=== PATIENT | female | born 1960 | race Caucasian/White ===

== ENCOUNTER 2017-10-05 06:07 | Day surgery (SDC) | payer OTHER ==
[2017-10-02 16:22] VITALS: BMI 22.7
--- NOTE | 2017-10-05 07:19 | HP ---
Admitting History and Physical - Admission History of Present Illness: Patient is a 56 y/o female with a past medical history of depression. She reports struggling with depression since 2009. Patient does report one suicide attempt with hospitalization in 2010 after the (suicide) of her son. Patient presents for ECT, she reports receiving ect in 2013 (10-12 treatments) and 2014 (6 treatments). She reports significant relief of depressive symptoms after starting ect. However, she self- discontinued after feeling better. Patient reports the depressive thoughts have worsened within the past months. Patient does reports suicidal ideation but she denies a plan. Patient denies any homicidal ideation, visual or auditory hallucination. 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 History of Recent Travel: No Home Medications - Allergies Allergies/Adverse Reactions: Allergies Allergy/AdvReac Type Severity Reaction Status Date / Time sertraline [From Zoloft] Allergy Severe MIGRAINE Verified 10/02/17 16:03 HEADACHE soy Allergy Intermediate Rash Verified 10/02/17 16:03 - Home Medications Home Medications: Ambulatory Orders Alprazolam [Xanax] 2 mg PO DAILY 10/02/17 Ibuprofen 600 mg PO TID PRN 10/02/17 Venlafaxine HCl ER [Effexor Xr -] 75 mg PO DAILY 10/02/17 Family Disease History - Family Disease History Family Disease History: CA: Father (lung ca), Mother (breast ca ), Other: Sister (depression, suicide ) Review of Systems - Review of Systems Constitutional: reports: No Symptoms Eyes: reports: No Symptoms HENT: reports: No Symptoms Neck: reports: No Symptoms Cardiovascular: reports: No Symptoms Respiratory: reports: No Symptoms Gastrointestinal: reports: No Symptoms Genitourinary: reports: No Symptoms Musculoskeletal: reports: No Symptoms Integumentary: reports: No Symptoms Neurological: reports: No Symptoms Endocrine: reports: No Symptoms Hematology/Lymphatic: reports: No Symptoms Psychiatric: reports: Depression Physical Examination Constitutional: Yes: Well Nourished, No Distress, Calm Eyes: Yes: WNL, Conjunctiva Clear, EOM Intact HENT: Yes: WNL, Atraumatic, Normocephalic Neck: Yes: WNL, Supple, Trachea Midline Cardiovascular: Yes: WNL, Regular Rate and Rhythm, S1, S2 Respiratory: Yes: WNL, Regular, CTA Bilaterally Gastrointestinal: Yes: WNL, Normal Bowel Sounds, Soft ...Rectal Exam: Yes: Deferred Renal/: Yes: WNL Musculoskeletal: Yes: WNL Extremities: Yes: WNL Edema: No Peripheral Pulses WNL: Yes Peripheral Pulses: Left Radial: 4+, Right Radial: 4+, Left Doralis Pedis: 3+, Right Dorsalis Pedis: 3+, Left Femoral: 3+, Right Femoral: 3+ Integumentary: Yes: WNL Neurological: Yes: WNL, Alert, Oriented ...Motor Strength: WNL Psychiatric: Yes: WNL, Alert, Oriented Labs: CBC WBC 7.1 K/mm3 (4.0-10.8) 10/05/17 07:10 RBC 4.20 M/mm3 (3.60-5.2) 10/05/17 07:10 Hgb 13.5 GM/dl (10.7-15.3) 10/05/17 07:10 Hct 39.6 % (32.4-45.2) 10/05/17 07:10 MCV 94.2 fl (80-96) 10/05/17 07:10 MCH 32.2 pg (25.7-33.7) 10/05/17 07:10 MCHC 34.2 g/dl (32.0-36.0) 10/05/17 07:10 RDW 13.2 % (11.6-15.6) 10/05/17 07:10 Plt Count 325 K/MM3 (134-434) 10/05/17 07:10 MPV 7.9 fl (7.5-11.1) 10/05/17 07:10 CMP Sodium 134 mmol/L (136-145) L 10/05/17 07:10 Potassium 3.9 mmol/L (3.5-5.1) 10/05/17 07:10 Chloride 105 mmol/L (98-107) 10/05/17 07:10 Carbon Dioxide 24 mmol/L (22-28) 10/05/17 07:10 Anion Gap 5 (8-16) L 10/05/17 07:10 BUN 16 mg/dl (7-18) 10/05/17 07:10 Creatinine < 0.8 mg/dl (0.6-1.3) 10/05/17 07:10 Creat Clearance w eGFR > 60 (>60) 10/05/17 07:10 Random Glucose 90 mg/dl (74-106) 10/05/17 07:10 Calcium 8.8 mg/dl (8.4-10.2) 10/05/17 07:10 Total Bilirubin < 0.5 mg/dl (0.2-1.0) 10/05/17 07:10 AST 15 U/L (10-42) 10/05/17 07:10 ALT 11 U/L (10-40) 10/05/17 07:10 Alkaline Phosphatase 61 U/L (32-92) 10/05/17 07:10 Total Protein 6.1 g/dl (6.4-8.3) L 10/05/17 07:10 Albumin 3.6 g/dl (3.5-5.0) 10/05/17 07:10 Assessment/Plan Patient is a 56 y/o female that presents for ect, labs and ekg reviewed patient is medically optimized for procedure informed consent, risks/benefits to be obtained by Dr Reed
[2017-10-05] MEDS ORDERED: ACETAMINOPHEN 325 MG TABLET (FP) PO PRN (07:42)
[2017-10-05] MEDS ORDERED: ONDANSETRON 4 MG/2 ML VIAL IVPUSH PRN (07:42)
[2017-10-05 07:44] LABS: HEMATOCRIT 39.6 % (32.4-45.2); HEMOGLOBIN 13.5 GM/dl (10.7-15.3); MCH 32.2 pg (25.7-33.7); MCHC 34.2 g/dl (32.0-36.0); MEAN CELL VOLUME 94.2 fl (80-96); MEAN PLT VOLUME 7.9 fl (7.5-11.1); PLATELET COUNT 325 K/MM3 (134-434); RDW 13.2 % (11.6-15.6); WHITE BLOOD COUNT 7.1 K/mm3 (4.0-10.8)
[2017-10-05 08:00] LABS: ALBUMIN 3.6 g/dl (3.5-5.0); ALK PHOS 61 U/L (32-92); ANION GAP 5 (8-16); BLOOD UREA NITROGEN 16 mg/dl (7-18); CALCIUM 8.8 mg/dl (8.4-10.2); CHLORIDE 105 mmol/L (98-107); CO2 24 mmol/L (22-28); GLUCOSE,RANDOM 90 mg/dl (74-106); POTASSIUM 3.9 mmol/L (3.5-5.1); SGOT/AST 15 U/L (10-42); SGPT/ALT 11 U/L (10-40); SODIUM 134 mmol/L (136-145); TOT PROT 6.1 g/dl (6.4-8.3)
[2017-10-05 08:07] LABS: INR 0.95 (0.82-1.09); PROTHROMBIN TIME (PATIENT) 10.7 SEC (10.2-13.0)
[2017-10-05 08:08] LABS: BILIRUBIN,TOTAL < 0.5 mg/dl (0.2-1.0); CREATININE < 0.8 mg/dl (0.6-1.3)
[2017-10-05 10:44] VITALS: PULSE 67
[2017-10-05 10:46] VITALS: BP 101/60; TEMP 98.1
--- NOTE | 2017-10-07 13:35 | EKG ---
Test Reason : Blood Pressure : / mmHG Vent. Rate : 068 BPM Atrial Rate : 068 BPM P-R Int : 156 ms QRS Dur : 104 ms QT Int : 424 ms P-R-T Axes : 074 054 052 degrees QTc Int : 450 ms NORMAL SINUS RHYTHM NORMAL ECG NO PREVIOUS ECGS AVAILABLE Confirmed by SABRINA PEREZ, HUGO ([id number]) on 10/07/2017 1:35:21 PM Referred By: Ej Reed Confirmed By:HUGO BENNETT MD
== END 2017-10-05 10:00 | disposition home or self-care (01) ==
LOC: FECT 06:07
PROVIDERS: ATTEND Psychiatry & Neurology Psychiatry
PROC: GZB4ZZZ Other Electroconvulsive Therapy (ICD-10-PCS; principal; 2017-10-05 08:30)
DX: F33.2 Major depressive disorder, recurrent severe without psychotic features (principal); R45.851 Suicidal ideations; Z87.891 Personal history of nicotine dependence; Z91.5 Personal history of self-harm
CPT/HCPCS: 36415; 80053; 85027; 85610; 90870; 93005; 94760

== ENCOUNTER 2017-10-07 05:47 | Day surgery (SDC) | payer OTHER ==
[2017-10-05 11:51] VITALS: BMI 22.7
[2017-10-07 09:15] VITALS: PULSE 76; TEMP 98
[2017-10-07 09:50] VITALS: BP 104/64
== END 2017-10-07 09:30 | disposition home or self-care (01) ==
LOC: FECT 05:47
PROVIDERS: ATTEND Psychiatry & Neurology Psychiatry
PROC: GZB4ZZZ Other Electroconvulsive Therapy (ICD-10-PCS; principal; 2017-10-07 08:30)
DX: F33.2 Major depressive disorder, recurrent severe without psychotic features (principal)
CPT/HCPCS: 90870; 94760

== ENCOUNTER 2017-10-09 05:49 | Day surgery (SDC) | payer OTHER ==
[2017-10-05 12:19] VITALS: BMI 22.7
[2017-10-09 08:16] VITALS: TEMP 97.9
[2017-10-09 10:24] VITALS: BP 100/64; PULSE 62
== END 2017-10-09 10:15 | disposition home or self-care (01) ==
LOC: FECT 05:49
PROVIDERS: ATTEND Psychiatry & Neurology Psychiatry
PROC: GZB4ZZZ Other Electroconvulsive Therapy (ICD-10-PCS; principal; 2017-10-09 08:30)
DX: F33.2 Major depressive disorder, recurrent severe without psychotic features (principal)
CPT/HCPCS: 90870; 94760

== ENCOUNTER 2017-10-12 05:42 | Day surgery (SDC) | payer OTHER ==
[2017-10-05 17:40] VITALS: BMI 22.7
[2017-10-12 09:24] VITALS: TEMP 98.2
[2017-10-12 10:22] VITALS: BP 108/64; PULSE 64
== END 2017-10-12 09:50 | disposition home or self-care (01) ==
LOC: FECT 05:42
PROVIDERS: ATTEND Psychiatry & Neurology Psychiatry
PROC: GZB4ZZZ Other Electroconvulsive Therapy (ICD-10-PCS; principal; 2017-10-12 07:30)
DX: F33.2 Major depressive disorder, recurrent severe without psychotic features (principal)
CPT/HCPCS: 90870; 94760

== ENCOUNTER 2017-10-16 05:43 | Day surgery (SDC) | payer OTHER ==
[2017-10-06 11:39] VITALS: BMI 22.7
[2017-10-16 08:33] VITALS: TEMP 97.6
[2017-10-16] MEDS ORDERED: KETAMINE HCL 500 MG/10 ML VIAL ONE (09:08)
[2017-10-16 10:38] VITALS: BP 110/70; PULSE 63
== END 2017-10-16 10:35 | disposition home or self-care (01) ==
LOC: FECT 05:43
PROVIDERS: ATTEND Psychiatry & Neurology Psychiatry
PROC: GZB4ZZZ Other Electroconvulsive Therapy (ICD-10-PCS; principal; 2017-10-16 07:45)
DX: F33.2 Major depressive disorder, recurrent severe without psychotic features (principal)
CPT/HCPCS: 90870; 94760

== ENCOUNTER 2017-10-21 05:44 | Day surgery (SDC) | payer OTHER ==
[2017-10-16 17:04] VITALS: BMI 22.7
[2017-10-23 07:28] VITALS: BP 102/56; PULSE 64; TEMP 98.2
== END 2017-10-21 09:15 | disposition home or self-care (01) ==
LOC: FECT 05:44
PROVIDERS: ATTEND Psychiatry & Neurology Psychiatry
PROC: GZB4ZZZ Other Electroconvulsive Therapy (ICD-10-PCS; principal; 2017-10-21 07:15)
DX: F33.2 Major depressive disorder, recurrent severe without psychotic features (principal)
CPT/HCPCS: 90870; 94760

== ENCOUNTER 2017-10-23 05:42 | Day surgery (SDC) | payer OTHER ==
[2017-10-21 11:49] VITALS: BMI 22.7
[2017-10-23] MEDS ORDERED: ONDANSETRON 4 MG/2 ML VIAL IVPUSH PRN (07:57)
[2017-10-23] MEDS ORDERED: oxyCODONE HCL 5 MG TABLET PO PRN (07:57)
[2017-10-23 09:42] VITALS: TEMP 98.1
[2017-10-23 09:44] VITALS: BP 106/66; PULSE 66
== END 2017-10-23 09:45 | disposition home or self-care (01) ==
LOC: FECT 05:42
PROVIDERS: ATTEND Psychiatry & Neurology Psychiatry
PROC: GZB4ZZZ Other Electroconvulsive Therapy (ICD-10-PCS; principal; 2017-10-23 07:15)
DX: F33.2 Major depressive disorder, recurrent severe without psychotic features (principal)
CPT/HCPCS: 90870; 94760

== ENCOUNTER 2017-10-26 05:43 | Day surgery (SDC) | payer OTHER ==
[2017-10-21 17:19] VITALS: BMI 22.7
[2017-10-26 10:20] VITALS: PULSE 62; TEMP 98
[2017-10-26 10:21] VITALS: BP 103/57
== END 2017-10-26 09:24 | disposition home or self-care (01) ==
LOC: FECT 05:43
PROVIDERS: ATTEND Psychiatry & Neurology Psychiatry
PROC: GZB4ZZZ Other Electroconvulsive Therapy (ICD-10-PCS; principal; 2017-10-26 07:15)
DX: F33.2 Major depressive disorder, recurrent severe without psychotic features (principal)
CPT/HCPCS: 90870; 94760

== ENCOUNTER → 2017-10-28 | Day surgery (SDC) | payer OTHER ==
[2017-10-28 08:00] VITALS: TEMP 97.7; BMI 22.7
[2017-10-28 09:03] VITALS: BP 93/44; PULSE 67
== END | disposition home or self-care (01) ==
LOC: FECT 05:40
PROVIDERS: ATTEND Psychiatry & Neurology Psychiatry
PROC: GZB4ZZZ Other Electroconvulsive Therapy (ICD-10-PCS; principal; 2017-10-28 07:00)
DX: F33.2 Major depressive disorder, recurrent severe without psychotic features (principal)
CPT/HCPCS: 90870; 94760

== ENCOUNTER 2017-10-30 05:44 | Day surgery (SDC) | payer OTHER ==
[2017-10-30 08:29] VITALS: BMI 22.7
[2017-10-30 09:47] VITALS: TEMP 98
[2017-10-30 10:11] VITALS: BP 108/70; PULSE 75
== END 2017-10-30 10:15 | disposition home or self-care (01) ==
LOC: FECT 05:44
PROVIDERS: ATTEND Psychiatry & Neurology Psychiatry
PROC: GZB4ZZZ Other Electroconvulsive Therapy (ICD-10-PCS; principal; 2017-10-30 07:00)
DX: F33.2 Major depressive disorder, recurrent severe without psychotic features (principal)
CPT/HCPCS: 90870; 94760